=== PATIENT | female | born 1980 | race Caucasian/White ===

== ENCOUNTER 2016-05-07 07:07 | Day surgery (SDC) | payer OTHER ==
[~2016-05-07] VITALS: Ht 175.3 cm; Wt 56.5 kg
[~2016-05-07 07:07] MED LIST: CHERATUSSIN AC PO; DEPO-PROVER150 MG/ML IM; FLONASE AL50 MCG/ACT IN; LIDODERM5 % TOP; NORCO1 TAB PO; OMEPRAZOLE20 M1 PO; PHENAZO200 MG PO; PROMETHAZINE/COD1 ML PO; TRAZODONE HCL50 MG PO; VENTOLIN HFA IN; XANAX0.5 MG PO; ZOFRAN4 MG PO
--- NOTE | 2016-05-07 12:04 | OPERATIVE REPORT ---
DATE OF SURGERY: 05/07/2016 SURGEON: Bony Anders MD CLINICAL TRIALS SPECIALIST: Anita Lynn III, MD PREOPERATIVE DIAGNOSIS: 1. Biliary dyskinesia POSTOPERATIVE DIAGNOSIS: 1. Biliary dyskinesia PROCEDURE PERFORMED: 1. Diagnostic laparoscopy 2. Laparoscopic cholecystectomy with cholangiography ANESTHESIA: General. INDICATIONS: The patient is a 35-year-old woman with persistent postprandial epigastric abdominal pain and a strong family history of gallbladder disease. Preoperative ultrasound demonstrated an enlarged common duct, but no other abnormalities. Additionally, CT scan, panendoscopy, and HIDA scan have been done. SURGICAL TECHNIQUE: The patient was taken to the operating room where a general anesthetic was administered and the patient prepped and draped in the usual sterile fashion. An orogastric tube, IV antibiotics, and sequential compression devices were in place. A local anesthetic of 0.5% Marcaine with epinephrine was infiltrated at all incision sites, starting with the umbilicus. An intraumbilical incision was first made and a Veress needle used to insufflate the abdominal cavity. A 10 mm cannula was passed and visualization was obtained. Three additional trocars were placed in the usual locations sequentially. The gallbladder was elevated and found to have adhesions to its anterior surface. The gastric body, the pylorus, the duodenum were examined to the extent possible, and the liver and right colic gutter. There were no obvious abnormalities involving any structures. A view of the pelvis also revealed no abnormalities. The gallbladder was elevated and the adhesions taken down with electrocautery and blunt dissection. The cystic duct was isolated at the neck of the gallbladder and a fluoroscopic cholangiogram carried out, which demonstrated free flow into the duodenum and no filling defects. The cystic duct and cystic artery were doubly clipped and divided and gallbladder stripped from the gallbladder fossa using electrocautery and delivered to the upper midline trocar site. It was suctioned free of bile and pulled out and submitted for histopathology. The operative site was inspected and found to be hemostatic. Additional Marcaine was instilled, gas was evacuated, and the skin sites closed in the midline with interrupted subcuticular 4-0 Vicryl suture and Steri-Strips. Steri- Strips and dressings were placed at all sites. The patient left in stable condition. No intraoperative complications were encountered.
[2016-05-07] MEDS ORDERED: DILAUDID2 MG PO (12:12)
--- NOTE | 2016-05-07 12:14 | Provider's Discharge Care Plan ---
Problem, Goal, Plan Problem List 1. S/P laparoscopic cholecystectomy 2. Fibromyalgia
--- NOTE | 2016-05-07 12:14 | Provider's Discharge Care Plan ---
Problem, Goal, Plan Problem List 1. S/P laparoscopic cholecystectomy 2. Fibromyalgia
--- NOTE | 2016-05-07 12:17 | DIAGNOSTIC IMAGING REPORT ---
PROCEDURE: XR INTRAOPERATIVE LAP ALVERTO INDICATION: EPIGASTRIC PAIN TECHNIQUE: Intraoperative fluoroscopy provided for Dr. Woodard performing an intraoperative cholangiogram following cholecystectomy. Total fluoroscopy time 0.11 minutes Cumulative dose to mGy. COMPARISON: None. FINDINGS: One intraoperative fluoroscopic spot images of the right upper quadrant of the abdomen demonstrate cannulation of the cystic duct stump and opacification of the intrahepatic and extrahepatic biliary tree. There are no filling defects. There is normal passage of contrast into the duodenum. IMPRESSION: 1. Negative intraoperative cholangiogram.
[2016-05-07 13:16] VITALS: BP 136/71
== END 2016-05-07 13:52 | disposition home or self-care (01) ==
LOC: SDC SRH 07:07 → OB SRH 07:12 → SDC SRH 09:00 → EDSTATUS 10:00 → SDC SRH 10:00
PROVIDERS: Surgery
PROC: BF131ZZ Fluoroscopy of Gallbladder and Bile Ducts using Low Osmolar Contrast (ICD-10-PCS; principal; 2016-05-07 09:00)
PROC: 0FT44ZZ Resection of Gallbladder, Percutaneous Endoscopic Approach (ICD-10-PCS; principal; 2016-05-07 09:00)
DX: K82.8 Other specified diseases of gallbladder (principal); K81.1 Chronic cholecystitis; Z72.0 Tobacco use

== ENCOUNTER 2016-05-15 23:25 | Emergency (ER) | payer OTHER ==
[~2016-05-15 23:25] MED LIST changes: +DILAUDID2 MG PO
--- NOTE | 2016-05-16 00:29 | ED ORDER SUMMARY ---
..... Patient: DEMARCO DIANE OrderSheet [facility] VisitID: [id number] [address] [place] [address] 35y, F Registration Date/Time: 05/15/2016 ORDER SHEET Weight: 54.4 kg (stated) Allergies: Wellbutrin, Lyrica, Naproxen, ADHESIVES GENERAL ORDERS: CBC w Diff Urgent (23:52 05/15/2016 Theo HORTON) (Ack 0:05 CHagmishel ER Bicycle Designer) CMP Urgent (23:52 05/15/2016 Theo HORTON) (Ack 0:05 Brenda ER Bicycle Designer) UA-Culture if indicated Urgent (23:05/15/2016 Theo HORTON) (Ack 0:05 Brenda ER Bicycle Designer) Urine Urgent (23:05/15/2016 Theo HORTON) (Ack 0:05 Brenda ER Bicycle Designer) Urine Drug Screen Urgent (23:52 05/15/2016 Theo HORTON) (Ack 0:05 Brenda ER Bicycle Designer) Amylase Urgent (23:52 05/15/2016 Theo HORTON) (Ack 0:05 Brenda ER Bicycle Designer) Lipase Urgent (23:52 05/15/2016 Theo HORTON) (Ack 0:05 Brenda ER Bicycle Designer) MEDICATION ORDERS: IV FLUIDS: IV NS : initial bolus 500 mL (1000 mL/hr), then 125 mL/hr for 4h (NOW); Urgent (23:52 05/15/2016 Theo HORTON) (Ack 23:54 Pedrito R.NCheryle) ORDER SHEET NOTES: [Electronically signed by Alida Little R.N. (00:05/16/2016)] [Electronically locked/signed by Alida Little R.N. (00:05/16/2016)]
--- NOTE | 2016-05-16 00:29 | ED CLINICAL REPORT ---
Clinical Report - Physicians/Mid Levels [facility] [address] [place] [address] 05/15/2016 23:26 Patient: DEMARCO DIANE PROGRESS AND PROCEDURES Course of Care: left without being seen. (Electronically signed by Tiburcio Farrell MD 05/16/2016 1:07)
--- NOTE | 2016-05-16 00:29 | ED CLINICAL REPORT ---
Clinical Report - Physicians/Mid Levels [facility] [address] [place] [address] 05/15/2016 23:26 Patient: DEMARCO DIANE PROGRESS AND PROCEDURES Course of Care: left without being seen. (Electronically signed by Tiburcio Farrell MD 05/16/2016 1:07)
--- NOTE | 2016-05-16 00:29 | ED NURSING NOTES ---
Clinical Report - Nurses [facility] [address] [place] [address] 05/15/2016 23:26 Patient: DEMARCO DIANE TRIAGE Triage time 23:30. Acuity: LEVEL 4. Chief Complaint: ABDOMINAL PAIN (chest pressure). Alert. No acute distress. --23:44 Alida Little R.N. 23:30 05/15/16. BP: 120/86. HR: 120. RR: 16. O2 saturation: 92%. Temp: 98.7 F (oral). Ramírez-Ponce pain scale: 6/10. --23:44 Alida Little R.N. Weight: 54.4 kg stated. Height/Length: 69 inches Per Patient. BMI: 17.7. --23:44 Alida Little R.N. Medications HYDROmorphone HCl Oral 2 mg, Q 6hrs as needed. --23:34 Alida Little R.N. Fluticasone Propionate Nasal, daily. --23:35 Alida Little R.N. Lidocaine External (Patch 5 %) (not using). --23:35 Alida Little R.N. Vicodin Oral 10 mg, Q 6hrs as needed. --23:36 Alida Little R.N. Depo-Provera Intramuscular, last dose February 2016. --23:36 Alida Little R.N. TraZODone HCl Oral (Tablet 50 mg) 2 tablets, at bedtime. --23:37 Alida Little R.N. Albuterol Sulfate Inhalation. --23:37 Alida Little R.N. Ondansetron HCl Oral (Tablet 4 mg) 1 tablet, every 6 hours as needed. --23:38 Alida Little R.N. Omeprazole Oral 20 mg, daily. --23:38 Alida Little R.N. Phenazopyridine HCl Oral 200 mg, 3x a day as needed. --23:39 Alida Little R.N. Promethazine VC/Codeine Oral (Syrup 6.25-5-10 mg/5mL) 5 mL, every 4 hrs as needed. --23:39 Alida Little R.N. ALPRAZolam Oral 1 mg, as needed. --23:39 Alida Little R.N. Allergies Wellbutrin. --23:41 Alida Little R.N. Lyrica. --23:41 Alida Little R.N. Naproxen. --23:41 Alida Little R.N. ADHESIVES. --23:41 Alida Little R.N. History Arrived by private vehicle. Historian: patient. Primary physician (Santa Cunningham). ( pt had exploratory surgery to check for endometriosis 8 days ago, pt states they didn't find anything so they removed the gallbladder (previously planned)). Onset. (about 2 nights ago). 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 PAST MEDICAL HX: Immunizations: up-to-date. SOCIAL HX: Heavy tobacco smoker- 1-2 packs per day. Occasional alcohol use. History of occasional drug use: marijuana. NUTRITIONAL RISK ASSESSMENT: The nutritional risk assessment revealed no deficiencies. FUNCTIONAL ASSESSMENT: Functional assessment: no impairments noted. --23:44 Alida Little R.N. PROBLEMS: Scoliosis. Fibromyalgia. Arthritis. Crps. Back Pain. --23:43 Alida Little R.N. ADDITIONAL SURGERIES: Colonoscopy. Dental Surgery. Exploratory laparotomy. Tonsillectomy. Upper GI scope. --23:43 Alida Little R.N. Interventions ID band on patient. To treatment room. --23:44 Alida Little R.N. PHYSICAL ASSESSMENT Ambulatory to room. Patient gowned. GENERAL / NEURO / PSYCH: Alert. Oriented X 4. Appears in no acute distress. RESPIRATORY: Respirations not labored. CVS: Capillary refill less than 2 seconds. SKIN: Skin is warm and dry. --23:45 Alida Little R.N. NURSING PROGRESS NOTES Head of bed elevated. Two patient identifiers checked. Call light placed in reach. Side rails up x 1. Bed placed in lowest position. Brakes of bed on. --: Alida Little R.N. Patient ready for evaluation- chart flagged. --: Alida Little R.N. 00:00- upon entering pt room to start IV, pt upset and states "I dont need an IV, I need pain medication". Pt informed that EDMD wants to check labs for signs of infection and possibly do a CT to rule out any life threatening emergency. Pt refuses IV. EDMD informed and states that pt needs to get Rx for pain medication from surgeon. Pt upset and states the surgeon told her to come to the ED. Pt wants EDMD to consult with surgeon. EDMD states he will consult if there is a surgical reason. Patient very upset and states "I am not a drug seeker. the pain medication from home is not working". Patient informed that I need to start an IV anyways if we were going to give her any medication so she might as well let us check labs for signs of infection. Pt very angry. Signs AMA form and shakes pill bottle at me as she leaves, stating "See, I have pain medication. I am not a drug seeker and I am being treated like one." (patient had previously told me that she has taken all of her medication because she misread the instructions and had been taking them every 4hrs instead of every 6hrs.) EDMD informed pt left AMA. --00:26 Alida Little R.N. DISPOSITION / DISCHARGE The patient left the Emergency Department without being seen by a physician and completion of treatment; patient was unaccompanied. The patient appears to be alert, oriented x4, coherent and in no acute distress. The patient notified the ED staff prior to leaving the department and stated is leaving the ED (did not get narcotics). Notified the ED physician of patient departure. Prior to leaving the ED, she was advised to stay for completion of treatment and return if needed. She was informed of the risks of leaving and verbalized understanding of these risks. Patient signed form prior to leaving. She left the Emergency Department ambulatory and via private vehicle. --00:27 Alida Little R.N. Departure time: 0010. --00:28 Alida Little R.N. Locked/Released at 05/16/2016 0:28 by Alida Little R.N.
--- NOTE | 2016-05-16 00:29 | ED ORDER SUMMARY ---
..... Patient: DEMARCO DIANE OrderSheet [facility] VisitID: [id number] [address] [place] [address] 35y, F Registration Date/Time: 05/15/2016 ORDER SHEET Weight: 54.4 kg (stated) Allergies: Wellbutrin, Lyrica, Naproxen, ADHESIVES GENERAL ORDERS: CBC w Diff Urgent (23:52 05/15/2016 Theo HORTON) (Ack 0:05 CHagmishel ER Rolls Mill Operator) CMP Urgent (23:52 05/15/2016 Theo HORTON) (Ack 0:05 Brenda ER [employer] Operator) UA-Culture if indicated Urgent (23:05/15/2016 Theo HORTON) (Ack 0:05 Brenda ER [employer] Operator) Urine Urgent (23:05/15/2016 Theo HORTON) (Ack 0:05 Brenda ER [employer] Operator) Urine Drug Screen Urgent (23:52 05/15/2016 Theo HORTON) (Ack 0:05 Brenda ER [employer] Operator) Amylase Urgent (23:52 05/15/2016 Theo HORTON) (Ack 0:05 Brenda ER [employer] Operator) Lipase Urgent (23:52 05/15/2016 Theo HORTON) (Ack 0:05 Brenda ER [employer] Operator) MEDICATION ORDERS: IV FLUIDS: IV NS : initial bolus 500 mL (1000 mL/hr), then 125 mL/hr for 4h (NOW); Urgent (23:52 05/15/2016 Theo HORTON) (Ack 23:54 Pedrito R.NCheryle) ORDER SHEET NOTES: [Electronically signed by Alida Little R.N. (00:05/16/2016)] [Electronically locked/signed by Alida Little R.N. (00:05/16/2016)]
--- NOTE | 2016-05-16 01:07 | ED MAR SUMMARY ---
..... Medication Administration Record [facility] [address] [place], [place] [id number] Patient: DEMARCO DIANE Visit ID: [id number] 35y, F Weight: 54.4 kg Height/Length: 69 in BMI: 17.7 ALLERGIES: ADHESIVES, Naproxen, Lyrica, Wellbutrin
--- NOTE | 2016-05-16 01:07 | ED MAR SUMMARY ---
..... Medication Administration Record [facility] [address] [place], [place] [id number] Patient: DEMARCO DIANE Visit ID: [id number] 35y, F Weight: 54.4 kg Height/Length: 69 in BMI: 17.7 ALLERGIES: ADHESIVES, Naproxen, Lyrica, Wellbutrin
--- NOTE | 2016-05-16 01:07 | ED MED RECONCILIATION SUMMARY ---
Patient: DEMARCO DIANE Medication Reconciliation Report [facility] VisitID: [id number] [address] [place] [address] 35y, F Registration Date/Time: 05/15/2016 Weight: 54.4 kg Height/Length: 69 in. BMI: 17.7 ALLERGIES: ADHESIVES, Lyrica, Naproxen, Wellbutrin The patient's Home Medications are listed below: THE FOLLOWING MEDICATIONS NEED TO BE RECONCILED: Albuterol Sulfate Inhalation ALPRAZolam Oral 1 mg Depo-Provera Intramuscular, last dose: February 2016 Fluticasone Propionate Nasal, daily HYDROmorphone HCl Oral 2 mg, Q 6hrs Lidocaine External (5 %), not using Omeprazole Oral 20 mg, daily Ondansetron HCl Oral (4 mg) 1 tablet, every 6 hours Phenazopyridine HCl Oral 200 mg, 3x a day Promethazine VC/Codeine Oral (6.25-5-10 mg/5mL) 5 mL, every 4 hrs TraZODone HCl Oral (50 mg) 2 tablets, at bedtime Vicodin Oral 10 mg, Q 6hrs The source(s) of the original Home Medication information: Not obtained. The following Medications were given to the patient in the Emergency Department: None. The following Medications were prescribed to the patient: None.
--- NOTE | 2016-05-16 01:07 | ED MED RECONCILIATION SUMMARY ---
Patient: DEMARCO DIANE Medication Reconciliation Report [facility] VisitID: [id number] [address] [place] [address] 35y, F Registration Date/Time: 05/15/2016 Weight: 54.4 kg Height/Length: 69 in. BMI: 17.7 ALLERGIES: ADHESIVES, Lyrica, Naproxen, Wellbutrin The patient's Home Medications are listed below: THE FOLLOWING MEDICATIONS NEED TO BE RECONCILED: Albuterol Sulfate Inhalation ALPRAZolam Oral 1 mg Depo-Provera Intramuscular, last dose: February 2016 Fluticasone Propionate Nasal, daily HYDROmorphone HCl Oral 2 mg, Q 6hrs Lidocaine External (5 %), not using Omeprazole Oral 20 mg, daily Ondansetron HCl Oral (4 mg) 1 tablet, every 6 hours Phenazopyridine HCl Oral 200 mg, 3x a day Promethazine VC/Codeine Oral (6.25-5-10 mg/5mL) 5 mL, every 4 hrs TraZODone HCl Oral (50 mg) 2 tablets, at bedtime Vicodin Oral 10 mg, Q 6hrs The source(s) of the original Home Medication information: Not obtained. The following Medications were given to the patient in the Emergency Department: None. The following Medications were prescribed to the patient: None.
== END 2016-05-16 00:05 | disposition home or self-care (01) ==
LOC: ED SRH 23:25
DX: Z53.21 Procedure and treatment not carried out due to patient leaving prior to being seen by health care provider (principal)

== ENCOUNTER 2016-06-01 16:42 | Outpatient (CLI) | payer OTHER ==
--- NOTE | 2016-06-01 17:43 | DIAGNOSTIC IMAGING REPORT ---
PROCEDURE: CTA THORAX WITH CONTRAST INDICATION: Chest pain and pressure. Right flank pain. Recent laparoscopic cholecystectomy (05/07/2016). TECHNIQUE: 80 ml of Isovue 370 was injected intravenously and axial images were obtained of the entire thorax with 3D sagittal and coronal MIP reconstructions. COMPARISON: Compared to abdominal ultrasound on 03/22/[address] abdomen and on 12/31/2015. FINDINGS: Lungs are clear. Pulmonary vessels are normal and there is no evidence of pulmonary embolus. Heart and mediastinum are normal. Mild levoscoliosis and degenerative changes of the thoracic spine. Status post cholecystectomy (surgical clips). Minor cystic changes in the liver. Common duct is at the upper limits of normal (7 mm). IMPRESSION: 1. Negative CT pulmonary arteriogram. No evidence of pulmonary embolus. 2. Findings discussed with SHAYNE Mansfield. All CT scans at this facility use dose modulation, iterative reconstruction, and/or weight-based dosing when appropriate to reduce radiation dose to as low as reasonably achievable.
== END 2016-06-01 23:00 ==
LOC: CT SRH 16:42
DX: R07.81 Pleurodynia (principal)